=== PATIENT | female | born 1940 | race African-American/Black ===

== ENCOUNTER 2017-01-09 16:03 | Emergency (ER) | payer MEDICARE ==
--- NOTE | 2017-01-09 16:58 | ER Document Report ---
HPI - HPI Patient complains to provider of: LEFT EAR PAIN AND SWELLING Onset: Yesterday Onset/Duration: Gradual Quality of pain: Throbbing Severity: Moderate Pain Level: 3 Context: Patient states she has had this before, and waited too long and had to have drained. Associated Symptoms: Earache - LEFT Exacerbated by: Denies Relieved by: Denies Similar symptoms previously: Yes Recently seen / treated by doctor: No - ROS ROS below otherwise negative: Yes Systems Reviewed and Negative: Yes All other systems reviewed and negative - CONSTITUTIONAL Constitutional: DENIES: Fever - EENT EENT: REPORTS: Ear Pain. DENIES: Congestion - NEURO Neurology: DENIES: Headache - CARDIOVASCULAR Cardiovascular: DENIES: Chest pain - RESPIRATORY Respiratory: DENIES: Trouble Breathing - GASTROINTESTINAL Gastrointestinal: DENIES: Abdominal Pain - URINARY Urinary: DENIES: Dysuria - REPRODUCTIVE Reproductive: DENIES: : - MUSCULOSKELETAL Musculoskeletal: DENIES: Extremity pain - DERM Skin Color: Normal Skin Problems: Rash Past Medical History - General Information source: Patient - Social History Smoking Status: Never Smoker Frequency of alcohol use: None Drug Abuse: None Lives with: Family Family History: Reviewed & Not Pertinent Patient has suicidal ideation: No Patient has homicidal ideation: No - Past Medical History Cardiac Medical History: Reports: Hx Hypercholesterolemia, Hx Hypertension Denies: Hx Congestive Heart Failure, Hx Heart Attack Renal/ Medical History: Denies: Hx End Stage Renal Disease, Hx Peritoneal Dialysis Psychiatric Medical History: Reports: Hx Anxiety, Hx Depression Past Surgical History: Reports: Hx Hysterectomy - Immunizations Hx Diphtheria, Pertussis, Tetanus Vaccination: Yes Vertical Provider Document - CONSTITUTIONAL Agree With Documented VS: Yes Exam Limitations: No Limitations General Appearance: WD/WN, No Apparent Distress - INFECTION CONTROL TRAVEL OUTSIDE OF THE [place] IN LAST 30 DAYS: No - HEENT HEENT: Atraumatic, Normocephalic Notes: Small, firm red area to helix of the left auricle. Tender to touch, nonfluctuant. - NECK Neck: Normal Inspection, Supple - RESPIRATORY Respiratory: Breath Sounds Normal, No Respiratory Distress O2 Sat by Pulse Oximetry: 99 - CARDIOVASCULAR Cardiovascular: Regular Rate, Regular Rhythm - MUSCULOSKELETAL/EXTREMETIES Musculoskeletal/Extremeties: MAEW, FROM - NEURO Level of Consciousness: Awake, Alert, Appropriate - DERM Integumentary: Warm, Dry Notes: See derm description above for ear. Course - Vital Signs Vital signs: Temp Pulse Resp BP Pulse Ox 99.0 F 98 18 134/65 H 99 01/09/17 16:26 01/09/17 16:26 01/09/17 16:26 01/09/17 16:26 01/09/17 16:26 Discharge - Discharge Clinical Impression: Cellulitis of helix of left ear Condition: Good Disposition: HOME, SELF-CARE Additional Instructions: ANTIBIOTICS PRESCRIBED WARM COMPRESSES FOLLOW UP WITH YOUR DOCTOR THURSDAY FOR RECHECK OR RETURN HERE IF NOT ANY BETTER TYLENOL FOR PAIN Prescriptions: Cephalexin [Cephalexin 500 MG Capsule] 1 cap PO QID #28 capsule
[2017-01-09 17:31] VITALS: BP 107/57
== END 2017-01-09 17:30 | disposition home or self-care (01) ==
LOC: ER 16:03
DX: H60.12 Cellulitis of left external ear (principal); H92.02 Otalgia, left ear; E78.00 Pure hypercholesterolemia, unspecified; I10 Essential (primary) hypertension; Z90.710 Acquired absence of both cervix and uterus
CPT/HCPCS: 99282

== ENCOUNTER → 2017-08-04 | Outpatient (CLI) | payer MEDICARE, OTHER ==
[2017-08-05 10:11] LABS: ALANINE AMINOTRANSFERASE 27 U/L (9-52); ALBUMIN 4.5 g/dL (3.5-5.0); ALKALINE PHOSPHATASE 86 U/L (38-126); ASPARTATE AMINO TRANSFERASE 19 U/L (14-36); BILIRUBIN,DIRECT 0.4 mg/dL (0.0-0.4); BILIRUBIN,TOTAL 0.5 mg/dL (0.2-1.3); CHOLESTEROL 230.52 mg/dL (0-200); Direct HDL 57 mg/dL (>40); TOTAL PROTEIN 7.8 g/dL (6.3-8.2); TRIGLYCERIDES 96 mg/dL (<150)
[2017-08-05 10:23] LABS: DIRECT LDL 116 mg/dL (<100)
== END ==
LOC: OD 14:06
PROVIDERS: ATTEND Specialist
DX: I10 Essential (primary) hypertension (principal); E78.4 Other hyperlipidemia; R01.1 Cardiac murmur, unspecified; F06.4 Anxiety disorder due to known physiological condition; Z79.899 Other long term (current) drug therapy
CPT/HCPCS: 36415; 80061; 80076